=== PATIENT | male | born 1990 | race African-American/Black ===

== ENCOUNTER 2023-04-30 02:24 | Outpatient (CLI) | payer MEDICAID | END 2023-04-30 02:25 | disposition critical access hospital (66) | LOC: EMS 02:24 | DX: F10.10 Alcohol abuse, uncomplicated (principal); M54.6 Pain in thoracic spine | CPT/HCPCS: A0425; A0429; A0999 ==

== ENCOUNTER 2023-04-30 02:42 | Emergency (ER) | payer MEDICAID ==
--- NOTE | 2023-04-30 04:39 | ED Physician Documentation ---
PD HPI CHEST PAIN - Stated complaint Stated Complaint: THORACIC PAIN - Chief complaint Chief Complaint: Cardiac - History obtained from History obtained from: Patient, EMS - Additional information Additional information: BIBA. HPI from patient. Patient c/o chest pain, onset approximately 24 hours ago. He is a vague historian. He says he "just wanted to get it checked out". When I ask him about exacerbating factors, he tells me he thinks it's due to recent heavy alcohol use. He says he had been sober for several months until past few weeks when he began drinking liquor (whiskey) on a daily basis. He says he cannot figure how much he drinks on an average day. I ask him if he has been inpatient for detox/rehabilitation and he says he has been in [facility] as a patient in the past. Denies SI, HI. Denies drug use. Patient repeatedly falls asleep throughout HPI/ROS Review of Systems Cardiac: reports: Chest pain / pressure. denies: Palpitations Respiratory: denies: Dyspnea GI: denies: Abdominal Pain, Nausea, Vomiting PD PAST MEDICAL HISTORY - Past Medical History Past Medical History: Yes Cardiovascular: Hypertension - Present Medications Home Medications: Ambulatory Orders Medication Instructions Recorded Confirmed metFORMIN [Glucophage] 500 mg PO BIDWM #60 tablet 04/30/23 - Allergies Allergies/Adverse Reactions: Allergies Allergy/AdvReac Type Severity Reaction Status Date / Time No Known Drug Allergies Allergy Verified 04/30/23 02:52 - Social History Does the pt smoke?: Yes Smoking Status: Current every day smoker Does the pt drink ETOH?: Yes Does the pt have substance abuse?: No PD ED PE NORMAL - Vitals Vital signs reviewed: Yes - General General: No acute distress, Well developed/nourished, Other (drowsy, falls asleep repeatedly during H+P but responds to verbal stimulus if repeated) - HEENT HEENT: Atraumatic, PERRL, EOMI, Moist mucous membranes - Cardiac Cardiac: RRR, No murmur - Respiratory Respiratory: No respiratory distress, Clear bilaterally - Abdomen Abdomen: Soft, Non tender - Neuro Eye Opening: To Voice Motor: Obeys Commands Verbal: Oriented GCS Score: 14 Results - Vitals Vitals: Vital Signs - 24 hr 04/30/23 04/30/23 04/30/23 02:48 02:52 04:52 Temperature 36.6 C 36.6 C Heart Rate 97 97 83 Respiratory 12 12 16 Rate Blood Pressure 146/94 H 146/94 H 123/60 O2 Saturation 100 100 98 04/30/23 06:00 Temperature Heart Rate 93 Respiratory 14 Rate Blood Pressure 130/76 O2 Saturation 99 Oxygen O2 Source Room air - EKG (time done) No standard instances EKG releavant findings:: EKG personally interpreted by author of this note. Relevant findings are: Rate: Rate (enter#) (86) Rhythm: NSR [place]: Normal Intervals: Normal VT QRS: Normal Ischemia: Normal ST segments - Labs Labs: Laboratory Tests 04/30/23 04/30/23 05:22 05:22 WBC 3.9 L RBC 4.37 L Hgb 12.0 L Hct 37.3 L MCV 85.4 MCH 27.5 MCHC 32.2 RDW 14.2 Plt Count 162 MPV 10.0 Neut # (Auto) 2.9 Lymph # (Auto) 0.6 L [place] # (Auto) 0.3 Eos # (Auto) 0.1 Baso # (Auto) 0.0 Absolute Nucleated RBC 0.00 Nucleated RBC % 0.0 Sodium 137 Potassium 3.8 Chloride 110 Carbon Dioxide 21 Anion Gap 6.0 BUN 24 H Creatinine 0.5 L Estimated GFR (MDRD) 194 Glucose 379 H Calcium 8.1 L Total Bilirubin 0.2 AST 12 ALT 18 Alkaline Phosphatase 93 Total Protein 5.4 L Albumin 3.3 Globulin 2.1 Albumin/Globulin Ratio 1.6 Lipase 49 Ethyl Alcohol < 10.0 PD Medical Decision Making - ED course Complexity details: reviewed results, re-evaluated patient, considered differential, d/w patient ED course: Patient is not exhibiting signs nor symptoms of alcohol withdrawal and has undetectable blood ethanol level. No concerning findings on EKG. Blood tests are most notable for hyperglycemia (379). Other abnormalities are noncontributory at this time (such as mild leukopenia). I reviewed results with patient and we discussed the hyperglycemia. He says he used to be on an oral medication for high blood sugar but cannot recall which one. He says he stopped taking it a few years ago due to running out and not following up with PCP. He is given 500mg PO metformin in ED and I am providing rx for metformin 500mg BID x 1 month supply. He is AAOx3 during this reevaluation and asymptomatic. I stressed the importance of following up with an outpatient medical practitioner for follow up and reevaluation of his hyperglycemia. Departure - Departure Disposition: 01 Home, Self Care Clinical Impression: Hyperglycemia Condition: Good Instructions: ED Hyperglycemia New Susp Diabetes Prescriptions: metFORMIN [Glucophage] 500 mg PO BIDWM #60 tablet Comments: Your blood sugar was very high today. You have indicated to me that you had been on oral medication in the past for high blood sugar. You were given a dose of metformin in the emergency department; this is a medication that can help lower blood sugar in [id number] diabetes. I am also providing you with a prescription for a 1 month supply of the metformin. As we discussed, it is very important that you follow-up with a medical practitioner in the next 1 to 2 weeks for reevaluation. You will likely need more than one month of the medication, but this prescription should provide you with enough time to be reevaluated within that time frame. Forms: PCP List Discharge Date/Time: 04/30/23 09:06
[2023-04-30 05:28] LABS: BASOPHILS % (AUTO) 0.5 %; EOSINOPHILS # (AUTO) 0.1 10^3/uL (0.0-0.7); EOSINOPHILS % (AUTO) 1.8 %; HCT - HEMATOCRIT 37.3 % (42.0-52.0); LYMPHOCYTES # (AUTO) 0.6 10^3/uL (1.5-3.5); LYMPHOCYTES % (AUTO) 14.8 %; MEAN CORPUSCULAR HEMOGLOBIN 27.5 pg (27.0-31.0); MEAN CORPUSCULAR HGB CONC 32.2 g/dL (32.0-36.0); MEAN CORPUSCULAR VOLUME 85.4 fL (80.0-94.0); MONOCYTES # (AUTO) 0.3 10^3/uL (0.0-1.0); MONOCYTES % (AUTO) 7.4 %; NEUTROPHILS # (AUTO) 2.9 10^3/uL (1.5-6.6); NEUTROPHILS % (AUTO) 75.2 %; PLT - PLATELET COUNT 162 10^3/uL (130-450); RED BLOOD COUNT 4.37 10^6/uL (4.70-6.10); RED CELL DISTRIBUTION WIDTH 14.2 % (12.0-15.0); WHITE BLOOD COUNT 3.9 x10^3/uL (4.8-10.8)
[2023-04-30 06:11] LABS: ALBUMIN 3.3 g/dL (3.2-5.5); ALBUMIN/GLOBULIN RATIO 1.6 (1.0-2.2); ALKALINE PHOSPHATASE 93 IU/L (42-121); ALT ALANINE AMINOTRANSFERASE 18 IU/L (10-60); AST ASPARTATE AMINOTRANSFERASE 12 IU/L (10-42); BILIRUBIN,TOTAL 0.2 mg/dL (0.2-1.0); BUN - BLOOD UREA NITROGEN 24 mg/dL (6-20); CALCIUM 8.1 mg/dL (8.5-10.3); CARBON DIOXIDE - CO2 21 mmol/L (21-32); CHLORIDE 110 mmol/L (101-111); CREATININE 0.5 mg/dL (0.6-1.3); ETOH - ETHANOL < 10.0 mg/dL; GFR - MDRD 194 (>89); GLUCOSE 379 mg/dL (74-104); LIPASE 49 U/L (11-82); POTASSIUM 3.8 mmol/L (3.5-4.5); SODIUM 137 mmol/L (135-145); TOTAL PROTEIN 5.4 g/dL (6.4-8.9)
[2023-04-30 07:18] VITALS: BP 130/76; O2SAT 99
== END 2023-04-30 09:06 | disposition home or self-care (01) ==
LOC: ED 02:42
DX: R73.9 Hyperglycemia, unspecified (principal); I10 Essential (primary) hypertension; F17.200 Nicotine dependence, unspecified, uncomplicated; Z79.84 Long term (current) use of oral hypoglycemic drugs
CPT/HCPCS: 36415; 80053; 80320; 83690; 85025; 93005; 99283

== ENCOUNTER 2023-04-30 14:54 | Outpatient (CLI) | payer MEDICAID | END 2023-04-30 23:59 | disposition critical access hospital (66) | LOC: EMS 14:54 | DX: R40.0 Somnolence (principal); F10.129 Alcohol abuse with intoxication, unspecified | CPT/HCPCS: A0425; A0429; A0999 ==

== ENCOUNTER 2023-04-30 15:27 | Emergency (ER) | payer MEDICAID ==
--- NOTE | 2023-04-30 16:59 | ED Physician Documentation ---
History of Present Illness - Stated complaint Stated Complaint: ETOH - Chief complaint Chief Complaint: General - Additonal information Additional information: Patient 32-year-old male presenting to the emergency department via EMS for acute alcohol intoxication. Was seen here and discharged earlier this morning to detox. At that time patient had undetectable blood ethanol. Upon arriving to [facility] patient found to be severely intoxicated. Blood alcohol further breathalyzer greater than 350. Patient brought in via EMS. Is somnolent and smells strongly of alcohol. Reports that he drank "tequila". Denies other illicit substance abuse. History is limited by his acute intoxication and altered mentation. Review of Systems Unable to obtain: Intoxicated PD PAST MEDICAL HISTORY - Past Medical History Cardiovascular: Hypertension - Present Medications Home Medications: Ambulatory Orders Medication Instructions Recorded Confirmed metFORMIN [Glucophage] 500 mg PO BIDWM #60 tablet 04/30/23 - Allergies Allergies/Adverse Reactions: Allergies Allergy/AdvReac Type Severity Reaction Status Date / Time No Known Drug Allergies Allergy Verified 04/30/23 02:52 - Social History Does the pt smoke?: Yes Smoking Status: Current every day smoker Does the pt drink ETOH?: Yes Does the pt have substance abuse?: No PD ED PE NORMAL - Vitals Vital signs reviewed: Yes (wnl) - HEENT HEENT: Atraumatic, PERRL, EOMI, Ears normal, Moist mucous membranes, Pharynx benign - Neck Neck: Supple, no meningeal sign, No JVD - Cardiac Cardiac: RRR, No gallop - Respiratory Respiratory: No respiratory distress, Clear bilaterally - Abdomen Abdomen: Normal bowel sounds, Soft, Non tender - Male Male : Deferred - Rectal Rectal: Deferred - Derm Derm: Normal color - Extremities Extremities: No deformity - Neuro Neuro: Other (Exam limited by acute intoxication. Generally nonfocal nonlateralizing neurologic exam. Patient moves all extremities spontaneously.) Results - Vitals Vitals: Vital Signs - 24 hr 04/30/23 04/30/23 04/30/23 15:42 16:32 19:01 Temperature 36.2 C L 37.4 C Heart Rate 85 96 105 H Respiratory 18 16 16 Rate Blood Pressure 134/94 H 126/86 H 139/84 H O2 Saturation 100 98 100 Oxygen O2 Source Room air PD Medical Decision Making - ED course Complexity details: reviewed old records ED course: Patient 32-year-old male presenting to the emergency department for acute alcohol intoxication. Was seen here earlier this evening and discharged this morning for local area detox facility. At that time he had an undetectable blood ethanol. No indications for detox at that time. At some point between leaving our facility and arriving at the detox facility he drank a bottle of tequila. He was found to have a blood ethanolGreater than 350At detox.Initial blood sugar on arrival was 54. Patient was able to tolerate p.o. apple juice and recheck of blood sugar was much improved. Given that he had a comprehensive evaluation this morning I did not see an indication for repeat lab work. Will be signing him out to the oncoming physician pending clinical sobriety and disposition. Please see their documentation for further detail. Departure - Departure Disposition: 01 Home, Self Care Clinical Impression: Alcohol intoxication Condition: Stable Instructions: ED Alcohol Intoxication Forms: PCP List Discharge Date/Time: 04/30/23 19:35
--- NOTE | 2023-04-30 18:36 | ED Physician Documentation ---
ED Addendum - Addendum Addendum: 04/30/23 18:36 Patient has been monitored. Clinically sober. No indication for repeat alcohol level at this time. Patient had a full panel of labs less than 12 hours prior to his repeat presentation. He is awake, alert, ambulatory without assistance. Discharged
[2023-04-30 19:09] VITALS: BP 139/84; O2SAT 100
== END 2023-04-30 19:35 | disposition home or self-care (01) ==
LOC: EDUNIT# → ED 15:27
DX: F10.129 Alcohol abuse with intoxication, unspecified (principal); F17.200 Nicotine dependence, unspecified, uncomplicated
CPT/HCPCS: 99283

== ENCOUNTER 2023-05-11 18:04 | Outpatient (CLI) | payer MEDICAID | END 2023-05-11 18:05 | disposition critical access hospital (66) | LOC: EMS 18:04 | DX: R44.0 Auditory hallucinations (principal); Z72.820 Sleep deprivation | CPT/HCPCS: A0425; A0429; A0999 ==

== ENCOUNTER 2023-05-11 18:36 | Emergency (ER) | payer MEDICAID ==
--- NOTE | 2023-05-11 18:39 | ED Physician Documentation ---
PD HPI MHE - Stated complaint Stated Complaint: AGITATION - History obtained from History obtained from: Patient, EMS - Additional information Additional information: 32-year-old gentleman who reportedly lives in [place] but [place] [address] [place]. He is brought in by ambulance because he called 911 reportedly hallucinating worried that radio traffic was about him and there were people following him. He admits to marijuana and alcohol use yesterday, none today. Denied methamphetamine use. PD PAST MEDICAL HISTORY - Past Medical History Cardiovascular: Hypertension - Present Medications Home Medications: Ambulatory Orders Medication Instructions Recorded Confirmed metFORMIN [Glucophage] 500 mg PO BIDWM #60 tablet 04/30/23 - Allergies Allergies/Adverse Reactions: Allergies Allergy/AdvReac Type Severity Reaction Status Date / Time No Known Drug Allergies Allergy Verified 05/11/23 18:48 - Social History Does the pt smoke?: Yes Smoking Status: Current every day smoker Does the pt drink ETOH?: Yes Does the pt have substance abuse?: No PD ED PE NORMAL - Vitals Vital signs reviewed: Yes - General General: Alert and oriented X 3, Other (Blunted affect, seems slightly agitated and fearful) - HEENT HEENT: PERRL, EOMI - Neck Neck: Supple, no meningeal sign, No bony TTP - Cardiac Cardiac: RRR, No murmur - Respiratory Respiratory: No respiratory distress, Clear bilaterally - Abdomen Abdomen: Non tender - Derm Derm: Normal color, Warm and dry - Neuro Neuro: Alert and oriented X 3, Normal speech Eye Opening: Spontaneous Motor: Obeys Commands Verbal: Oriented GCS Score: 15 Results - Vitals Vitals: Vital Signs - 24 hr 05/11/23 18:42 Temperature 36.8 C Heart Rate 102 H Respiratory 18 Rate Blood Pressure 176/102 H O2 Saturation 100 Oxygen O2 Source Room air - Labs Labs: Laboratory Tests 05/11/23 05/11/23 05/11/23 18:46 18:46 18:53 WBC 7.6 RBC 4.80 Hgb 13.9 L Hct 42.2 MCV 87.9 MCH 29.0 MCHC 32.9 RDW 16.1 H Plt Count 226 MPV 8.8 Neut # (Auto) 5.0 Lymph # (Auto) 1.5 [place] # (Auto) 1.0 Eos # (Auto) 0.0 Baso # (Auto) 0.0 Absolute Nucleated RBC 0.00 Nucleated RBC % 0.0 Sodium 134 L Potassium 3.4 L Chloride 94 L Carbon Dioxide 28 Anion Gap 12.0 BUN 9 Creatinine 0.9 Estimated GFR (MDRD) 119 Glucose 98 Calcium 10.1 Magnesium 1.7 Total Bilirubin 1.2 H AST 21 ALT 15 Alkaline Phosphatase 42 Total Creatine Kinase 119 Total Protein 8.1 Albumin 5.0 Globulin 3.1 Albumin/Globulin Ratio 1.6 Lipase 27 TSH 1.44 Urine Color Urine Clarity Urine pH Ur Specific [place] Urine Protein Urine Glucose (UA) Urine Ketones Urine Occult Blood Urine Nitrite Urine Bilirubin Urine Urobilinogen Ur Leukocyte Esterase Urine RBC Urine WBC Ur Squamous Epith Cells Urine Bacteria Urine Mucus Ur Microscopic Review Urine Culture Comments Salicylates < 1.5 Urine Opiates Screen Ur Buprenorphine Scrn Ur Oxycodone Screen Urine Methadone Screen Acetaminophen 0.2 Ur Barbiturates Screen Ur Tricyclics Screen Ur Phencyclidine Scrn Ur Amphetamine Screen U Methamphetamines Scrn U Benzodiazepines Scrn Urine Cocaine Screen U Cannabinoids Screen Ur Drug Screen Comment Ethyl Alcohol < 10.0 SARS-CoV-2 (PCR) NOT DETECTED 05/11/23 19:14 WBC RBC Hgb Hct MCV MCH MCHC RDW Plt Count MPV Neut # (Auto) Lymph # (Auto) [place] # (Auto) Eos # (Auto) Baso # (Auto) Absolute Nucleated RBC Nucleated RBC % Sodium Potassium Chloride Carbon Dioxide Anion Gap BUN Creatinine Estimated GFR (MDRD) Glucose Calcium Magnesium Total Bilirubin AST ALT Alkaline Phosphatase Total Creatine Kinase Total Protein Albumin Globulin Albumin/Globulin Ratio Lipase TSH Urine Color DARK YELLOW Urine Clarity CLEAR Urine pH 6.0 Ur Specific [place] >=1.030 H Urine Protein 30 H Urine Glucose (UA) NEGATIVE Urine Ketones 40 H Urine Occult Blood NEGATIVE Urine Nitrite NEGATIVE Urine Bilirubin NEGATIVE Urine Urobilinogen 1 (NORMAL) Ur Leukocyte Esterase NEGATIVE Urine RBC 0-5 Urine WBC 0-3 Ur Squamous Epith Cells NONE SEEN Urine Bacteria None Seen Urine Mucus Marked Strands Ur Microscopic Review INDICATED Urine Culture Comments NOT INDICATED Salicylates Urine Opiates Screen NEGATIVE Ur Buprenorphine Scrn NEGATIVE Ur Oxycodone Screen NEGATIVE Urine Methadone Screen NEGATIVE Acetaminophen Ur Barbiturates Screen NEGATIVE Ur Tricyclics Screen NEGATIVE Ur Phencyclidine Scrn NEGATIVE Ur Amphetamine Screen POSITIVE H U Methamphetamines Scrn POSITIVE H U Benzodiazepines Scrn POSITIVE H Urine Cocaine Screen NEGATIVE U Cannabinoids Screen POSITIVE H Ur Drug Screen Comment CUTOFF CONC BELOW: Ethyl Alcohol SARS-CoV-2 (PCR) PD Medical Decision Making - ED course Complexity details: reviewed results (CBC-nl, CMP- v mild low K/NA, UDS + for meth /cannabis et al.) ED course: 32yo with mild psychosis d/t meth. Cooperative here. Agreeable to holding overnight to al in AM ans poss SW c/s. Departure - Departure Clinical Impression: Methamphetamine-induced psychotic disorder Condition: Stable Instructions: ED Drug Abuse General
[2023-05-11 18:49] VITALS: O2SAT 100
[2023-05-11 18:50] LABS: BASOPHILS % (AUTO) 0.5 %; EOSINOPHILS % (AUTO) 0.1 %; HCT - HEMATOCRIT 42.2 % (42.0-52.0); HGB - HEMOGLOBIN 13.9 g/dL (14.0-18.0); LYMPHOCYTES # (AUTO) 1.5 10^3/uL (1.5-3.5); LYMPHOCYTES % (AUTO) 20.3 %; MEAN CORPUSCULAR HGB CONC 32.9 g/dL (32.0-36.0); MEAN CORPUSCULAR VOLUME 87.9 fL (80.0-94.0); MEAN PLATELET VOLUME 8.8 fL (7.4-11.4); MONOCYTES % (AUTO) 12.5 %; NEUTROPHILS % (AUTO) 66.3 %; PLT - PLATELET COUNT 226 10^3/uL (130-450); RED CELL DISTRIBUTION WIDTH 16.1 % (12.0-15.0); WHITE BLOOD COUNT 7.6 x10^3/uL (4.8-10.8)
[2023-05-11 19:10] LABS: ACETAMINOPHEN 0.2 ug/mL; ALBUMIN/GLOBULIN RATIO 1.6 (1.0-2.2); ALKALINE PHOSPHATASE 42 IU/L (42-121); ALT ALANINE AMINOTRANSFERASE 15 IU/L (10-60); AST ASPARTATE AMINOTRANSFERASE 21 IU/L (10-42); BILIRUBIN,TOTAL 1.2 mg/dL (0.2-1.0); BUN - BLOOD UREA NITROGEN 9 mg/dL (6-20); CALCIUM 10.1 mg/dL (8.5-10.3); CARBON DIOXIDE - CO2 28 mmol/L (21-32); CHLORIDE 94 mmol/L (101-111); CK- CREATINE KINASE 119 IU/L (30-223); CREATININE 0.9 mg/dL (0.6-1.3); ETOH - ETHANOL < 10.0 mg/dL; GFR - MDRD 119 (>89); GLUCOSE 98 mg/dL (74-104); LIPASE 27 U/L (11-82); MAGNESIUM 1.7 mg/dL (1.7-2.3); POTASSIUM 3.4 mmol/L (3.5-4.5); SODIUM 134 mmol/L (135-145); TOTAL PROTEIN 8.1 g/dL (6.4-8.9)
[2023-05-11 19:13] LABS: SALICYLATE < 1.5 mg/dL
[2023-05-11 19:20] LABS: GLUCOSE, URINE (UA) NEGATIVE (NEGATIVE); KETONES,URINE (UA) 40 mg/dL (NEGATIVE); LEUKOCYTE ESTERASE, URINE NEGATIVE (NEGATIVE); NITRITE,URINE NEGATIVE (NEGATIVE); OCCULT BLOOD,URINE NEGATIVE (NEGATIVE); PROTEIN,URINE 30 mg/dL (NEGATIVE); UROBILINOGEN,URINE 1 (NORMAL) E.U./dL (NORMAL)
[2023-05-11 19:22] LABS: THYROID STIMULATING HORMONE 1.44 uIU/mL (0.34-5.60)
[2023-05-11 19:23] LABS: BILIRUBIN,URINE NEGATIVE (NEGATIVE); CLARITY,URINE CLEAR (CLEAR); ICTOTEST,URINE NEGATIVE
[2023-05-11 19:31] LABS: AMPHETAMINE SCREEN,URINE POSITIVE (NEGATIVE); BARBITURATE SCREEN,UR NEGATIVE (NEGATIVE); BENZODIAZEPINES SCREEN, URINE POSITIVE (NEGATIVE); BUPRENORPHINE SCREEN, URINE NEGATIVE (NEGATIVE); COCAINE SCREEN URINE NEGATIVE (NEGATIVE); METHADONE SCREEN, URINE NEGATIVE (NEGATIVE); METHAMPHETAMINES SCREEN, URINE POSITIVE (NEGATIVE); OPIATE SCREEN, URINE NEGATIVE (NEGATIVE); OXYCODONE SCREEN, URINE NEGATIVE (NEGATIVE); THC CANNABINOID SCREEN, URINE POSITIVE (NEGATIVE); TRICYCLIC ANTIDEPRESSANT,URINE NEGATIVE (NEGATIVE)
[2023-05-11 19:36] LABS: RBC,URINE 0-5 /HPF (0-5); WBC,URINE 0-3 /HPF (0-3)
[2023-05-11 19:37] LABS: BACTERIA,URINE None Seen /HPF (None Seen); MUCUS,URINE Marked Strands; SQUAMOUS EPITHELIAL CELL,UR NONE SEEN (<= Few)
[2023-05-11] MEDS ORDERED: LORazepam 1 MG TABLET PO STA (22:52)
[2023-05-11] MEDS ORDERED: QUEtiapine 25 MG TABLET PO STA (22:52)
--- NOTE | 2023-05-12 06:59 | ED Physician Documentation ---
ED Addendum - Addendum Addendum: 05/12/23 06:59 NAEON. Patient endorsed to incoming daytime ED MD at 7am shift change.
[2023-05-12 07:06] VITALS: BP 141/81
--- NOTE | 2023-05-12 08:01 | ED Physician Documentation ---
ED Addendum - Addendum Addendum: 05/12/23 Patient signed out to me at shift change. Patient reports using methamphetamine and alcohol as he states Holiday time is difficult for him. He states he was able to get some sleep last night as he had not been sleeping for the past few days. He says he still feels very tired but would like some help for his meth use as well as his alcohol use. Social work consult has been ordered overnight. Patient was seen by social work and given outpatient resources for detox. This morning facilities did not have any open beds but there were potential openings available this afternoon which patient was made aware of. Patient does not need to be held in the emergency department until there is a bed opening and he understands how to call to see when a bed may be available at any of the detox facilities. He has not had any withdrawal symptoms since being here. He is not suicidal. He has been cooperative this morning during my shift. He is ambulatory with clear speech. He understands he can return to the emergency department with any concerns. Departure - Departure Disposition: 01 Home, Self Care Clinical Impression: Methamphetamine-induced psychotic disorder Condition: Stable Instructions: ED Drug Abuse General Comments: Please reach out to the facilities that social work provided you with to find an available spot to help with detox. [facility] [address] [place] [address] Main [facility] offers a monitored and safe setting for individuals withdrawing from alcohol and drugs, and counseling for individuals experiencing a mental health crisis. All services are provided in a 10-bed facility where intensive medical monitoring is required along with stabilization services. The goal of these services is to assess a clients mental health and substance use disorder related needs, and assist them in accessing the services they need to recover.
== END 2023-05-12 12:46 | disposition home or self-care (01) ==
LOC: EDUNIT# → ED 18:36
DX: F15.951 Other stimulant use, unspecified with stimulant-induced psychotic disorder with hallucinations (principal); F17.200 Nicotine dependence, unspecified, uncomplicated
CPT/HCPCS: 36415; 80053; 80306; 80307; 80320; 80329; 81001; 82550; 83690; 83735; 84443; 85025; 87635; 99283; A9270; J8499; 81003; 87086